=== PATIENT | female | born 1960 | race Caucasian/White ===

== ENCOUNTER → 2016-11-13 | Outpatient (CLI) | payer OTHER ==
[~2016-11-13] MED LIST: ASPIRIN81 M1 PO; CYMBALTA PO; GLUCOPHAGE500 M1 PO; JANUMET 50-501 UDTAB PO; LEVOTHYROXINE25 MC1 PO; LEXAPRO PO; MULTI-VITAMIN1 EAC1 PO; TRICOR PO; VITAMIN B12-FO1 EACH PO; WELLBUTRIN PO
--- NOTE | ~2016-11-13 | US6 ---
[facility] A Service of [facility] RADIOLOGY TEXT RESULTS PATIENT: KATHARINA DISLA LOCATION: [facility] : 60 UNIT #: [id number] AGE: [address]: Ana Perez MD SEX: F ORDER DR: [id number] [facility] [address] [place], [place] [address] [id number] O MR#: [id number] Acc #: [id number] NAME: KATHARINA DISLA : 1960 SEX: F STUDY DATE/TIME: 11/13/2016 8:38 UNIT: [facility] ROOM: STUDY DESCRIPTION: US Abdominal Limited Attending Physician: Ana Perez M.D. Ordering Physician: Ana Perez M.D. Primary Care Physician: Ana Perez M.D. MEDICAL IMAGING REPORT This report is preliminary unless electronic signature is present EXAM Right upper quadrant ultrasound 11/13/2016 HISTORY ALVAREZ diagnosed in 2011 follow up. FINDINGS The liver demonstrates an increase in echotexture with attenuation of the ultrasound beam characteristic of fatty infiltration. No cystic or solid mass lesions were seen in the liver. The intra and extrahepatic bile ducts are not dilated. The gallbladder is normal with no evidence of cholelithiasis, wall thickening or pericholecystic fluid. The common duct measures 3 mm. The pancreas and right kidney are normal. IMPRESSION Diffuse fatty infiltration of the liver. Otherwise negative right upper quadrant ultrasound. Dictated by... Jack Mendoza M.D. THIS IS AN ELECTRONICALLY VERIFIED REPORT Jack Mendoza M.D. at 11/13/2016 1:47 PM Judy TD: 11/13/2016 13:16 JOB #: [id number] MEDICAL IMAGING REPORT Page 1 of 1 COPY
--- NOTE | ~2016-11-13 | BD1 ---
[facility] A Service of [facility] RADIOLOGY TEXT RESULTS PATIENT: KATHARINA DISLA LOCATION: [facility] : 60 UNIT #: [id number] AGE: [address]: Ana Perez MD SEX: F ORDER DR: [id number] [facility] [address] [place], [place] [address] [id number] O MR#: [id number] Acc #: [id number] NAME: KATHARINA DISLA : 1960 SEX: F STUDY DATE/TIME: 11/13/2016 9:05 UNIT: [facility] ROOM: STUDY DESCRIPTION: BD Dexa Bone Dens 1+ Site Attending Physician: Ana Perez M.D. Ordering Physician: Ana Perez M.D. Primary Care Physician: Ana Perez M.D. MEDICAL IMAGING REPORT This report is preliminary unless electronic signature is present EXAM DEXA scan 11/13/2016 HISTORY Status post menopause with no hormone replacement therapy. Osteopenia. Hysterectomy at age 36. Diabetes. Thyroid medication for 10 years. Smoking history. FINDINGS Bone mineral density in the lumbar spine from L1-L4 was 1.054 g/cm2 which is 0.1 standard deviations above the mean when compared to the young adult reference population which is within the range of normal. This is 1.2 standard deviations above the mean when compared to the age-matched population. Compared with 05/10/2013 there has been a decrease in bone mineral density in the lumbar spine of 5.2%. Bone mineral density in the left femoral neck was 0.8 g/cm2 which is 0.4 standard deviations below the mean when compared to the young adult reference population which is within the range of normal. This is 0.7 standard deviations above the mean when compared to the age-matched population. Compared with 05/10/2013 there has been a decrease in bone mineral density in the left hip of 2.7%. IMPRESSION Bone mineral density in the lumbar spine and left hip within the range of normal. Compared with 05/10/2013 there has been a decrease in bone mineral density in the lumbar spine and the left hip. Dictated by... Jack R. Reji, M.D. THIS IS AN ELECTRONICALLY VERIFIED REPORT Jack Mendoza M.D. at 11/13/2016 1:46 PM KRT/to [facility] A Service of [facility] RADIOLOGY TEXT RESULTS PATIENT: KATHARINA DISLA LOCATION: [facility] : 60 UNIT #: [id number] AGE: [address]: Ana Perez MD SEX: F ORDER DR: TD: 11/13/2016 11:27 JOB #: [id number] MEDICAL IMAGING REPORT Page 1 of 1 COPY
== END | disposition home or self-care (01) ==
LOC: CWCC 08:26
DX: Z13.820 Encounter for screening for osteoporosis (principal); Z78.0 Asymptomatic menopausal state; K75.81 Nonalcoholic steatohepatitis (NASH)
CPT/HCPCS: 76705; 77080